=== PATIENT | female | born 1940 | race Caucasian/White ===

== ENCOUNTER → 2018-09-18 | Outpatient (CLI) | payer OTHER ==
[~2018-09-18] MED LIST: AMLODIPINE BESYL5 MG PO; AUGMENTIN 875875 M1 PO; BENICAR HCT 201 EACH PO; DICLOFENAC SODI75 M1 PO; DOXYCYCLINE 10100 MG PO; ZOCOR 20 MG TAB20 M1 PO
== END ==
LOC: RAD 12:27
DX: M16.0 Bilateral primary osteoarthritis of hip (principal); M43.26 Fusion of spine, lumbar region

== ENCOUNTER → 2018-09-26 | Outpatient (CLI) | payer OTHER ==
[~2018-09-26] VITALS: Ht 162.6 cm; Wt 84.8 kg
[~2018-09-26] MED LIST changes: +ESTRADIOL 1 MG T1 M1 PO; +LIPITOR 20 MG T20 M1 PO; +VOLTAREN GEL 1100 G1 TOP; -ZOCOR 20 MG TAB20 M1 PO
[2018-09-26 12:54] VITALS: BP 137/76
--- NOTE | 2018-09-26 13:20 | NUR ---
Pain Clinic Assessment: 1. History of Osteoarthritis: Not Applicable History of Rheumatoid Arthritis: Not Applicable 2. Height: 5 ft. 4 in. 162.6 cm. Weight: 187.0 lb. oz. 84.823 kg. Patient's BMI: 32.1 3. Vital Signs: BP: 137/76 Pulse: 102 Resp: 16 Temp: 02 Sat: 99 ECG Mon: 4. Pain Intensity: 3 5. Fall Risk: Dizziness: N Needs help standing or walking: Y Fallen in the last 3 months: N Fall risk comments: 6. Patient on Blood Thinner: None 7. History of Hypertension: Y 8. Opioid Therapy greater than 6 weeks: N Opiate Contract Signed: 9. Risk Assessment Tool Provided: 10. Functional Assessment Tool: 11. Recreational Drug Use: Never Drug Type: Tobacco Use: Never Smoker Tobacco Type: Amount or Packs/day: How Many Years: Alcohol Use: Yes Frequency: Monthly Quant: 1-2
--- NOTE | 2018-10-04 07:55 | HPC ---
[facility] [address] [place] [address] PAIN MANAGEMENT CONSULTATION Name: KRISCAN MORENOANYI Narvaez Room #: REG LYNSEY Saldaña.#: [id number] Admission: 09/26/18 Attend Phys: Len Barreto DO Discharge: Date of : 44 Report #: [id number] THIS REPORT FOR: //name// CC: FAM physician/PCP Len Ellison DATE OF SERVICE: 09/26/2018 REFERRING PHYSICIAN: Dr. Angel Ellison. CHIEF COMPLAINT: Right greater trochanteric bursa pain. HISTORY OF PRESENT ILLNESS: As you know, the patient is a 77-year-old female who has been referred to our service with right greater trochanteric bursitis pain. She is easily able to localize the pain directly over the right greater trochanteric area. Deep palpation of the area causes intensification of pain. She was seen by Dr. Ellison recently for evaluation where she was complaining of pain after a recent L3-L4 through S1 instrumentation and fusion due to a failed L4-L5 and L5-S1 instrumented fusion. The patient states that Dr. Ellison did not feel that her symptoms were related to her low back and was subsequently referred to our clinic to discuss options for treatment. The patient indicates pain today is rhythmic. She describes this pain as aching, stabbing and tender. She places current pain score 3/10, daily average of 3-4/10, worst pain has been is 10/10. The patient states pain is exacerbated with lying on the right side and walking, improves with icing and sitting in a left lateral decubitus position. She has been referred to our service to discuss treatment options for what appears to be right greater trochanter bursitis. PAST MEDICAL HISTORY: 1. Osteoarthritis. 2. Gout. 3. Hypertension. 4. Osteopenia. 5. Fibromyalgia. 6. Osteoporosis. 7. Failed lumbar spine surgery. PAST SURGICAL HISTORY: 1. Tonsillectomy. 2. Hysterectomy. 3. Left arm open reduction and internal fixation. 4. Breast augmentation. 5. Right total knee replacement. [address] [address] PAIN MANAGEMENT CONSULTATION Name: TONI PONCE Room #: REG [facility] Piper.#: [id number] Admission: 09/26/18 Attend Phys: Len Barreto DO Discharge: Date of : 42 Report #: [id number] 6. L4-L5 fusion. 7. Achilles tendon repair. 8. Right total knee arthroplasty. 9. Left total knee arthroplasty. 10. L4 through S1 TLIF. SOCIAL HISTORY: The patient denies tobacco or IV or illicit drug use. She is single. She is retired, not working, not receiving workmen's compensation nor is trying to obtain disability benefits. She is unaccompanied at today's visit. REVIEW OF SYSTEMS: Positive for weight gain, wearing corrective eyewear, chronic sinus problems with rhinitis, nocturia, insomnia, right greater trochanteric bursa pain. All other review of systems negative per 12-point review of systems other than those listed in history of present illness. PAIN SCORE: Pain impact score 25/70 indicating [id number] interference of daily activities secondary to pain. ALLERGIES: SULFA. CURRENT MEDICATIONS: Levothyroxine 50 mcg per day, gabapentin 300 mg 4 tabs t.i.d., cyclobenzaprine 5 mg p.o. at bedtime, atorvastatin 20 mg per day, estradiol 1 mg once a day, Benicar/hydrochlorothiazide 20/12.5 mg once a day, calcium carbonate 1 tablet a per day, Coenzyme Q10 300 mg once a day, cyclobenzaprine 10 mg p.r.n. and Mobic 15 mg per day. IMAGING DATA: X-ray of the right hip shows SI joint and pubic symphysis are intact. Degenerative changes of the pubic symphysis, hip joints appear symmetrical bilaterally. No acute fracture or dislocation. No bony destructive changes. PQRS: The patient has known osteoarthritic changes of the pubic symphysis and lumbar spine, no rheumatoid arthritis. She is placing pain intensity 3/10. She is a fall risk but has not had a fall in the last 3 months. She is not on blood thinners. She is treated for hypertension. She is not on chronic opioids. She has a low opioid addiction potential. PHYSICAL EXAMINATION: VITAL SIGNS: Blood pressure 137/76, pulse 102 and respiratory rate 16 and unlabored. The patient 99% on room air. Height 5 feet 4 inches tall, weight 187 pounds and BMI calculated 32.1. GENERAL: Well-developed, well-nourished and well-hydrated exogenously obese 77-year-old female appearing stated age, placing current pain score at 3/10. HEENT: Normocephalic and atraumatic. Pupils equal, round and reactive to light. Extraocular muscles are intact. Sclerae nonicteric without injection. NEUROLOGICAL: Cranial nerves 2 through 12 grossly intact. Speech is fluent. [address] [address] PAIN MANAGEMENT CONSULTATION Name: TONI PONCE Room #: REG LYNSEY Braxton#: [id number] Admission: 09/26/18 Attend Phys: Len Barreto DO Discharge: Date of : 42 Report #: [id number] LUNGS: Clear, no wheeze, rhonchi or rales. CARDIOVASCULAR: Tachycardic. No appreciable gallop or rub. ABDOMEN: Soft, obese, nontender and nondistended. EXTREMITIES: Show no clubbing, no cyanosis and no edema. MUSCULOSKELETAL: Lower extremity strength appears equal and symmetrical 5/5, intact to light touch from L1 through S2 dermatomes. Deep tendon reflexes are 2+/4, patella and Achilles. Ankle clonus negative. Babinski is negative. There is palpatory tenderness over the right greater trochanteric area. Deep palpation of the area causes intensification of pain with radiation in typical distribution. ASSESSMENT: 1. Right greater trochanteric bursitis. 2. Muscle spasms of the lumbar spine. 3. Chronic intractable pain. PLAN: 1. The patient has been referred to our service by her neurosurgeon, Dr. Angel Ellison for evaluation for pain that is not resolved with previous surgery. The patient is easily able to localize her symptoms directly over the right greater trochanteric area. Deep palpation of the area causes intensification of pain, which is consistent with greater trochanteric bursitis. The patient indicates that her pain is exacerbated with lying on that right side and walking long distances classic signs and symptoms of greater trochanteric bursitis. There are no lumbar radicular symptoms with the patient and there is no lumbar palpatory tenderness today, though she does have some spasming in the back, which is typical for recent surgeries. She has been referred to our service to discuss treatment options for this right greater trochanteric bursa pain. We discussed physical therapy, stretching exercises, core strengthening as a treatment option for the patient. This included with some hip treatments and greater trochanteric bursa treatments with ultrasound and other modalities. We discussed medication management adding a neuropathic pain medication and a nonsteroidal anti-inflammatory. We discussed a greater trochanteric bursa injections and ultimately surgical options such as a bursectomy. After reviewing risks and benefits of all proposed treatment options, the patient chose to begin with the right greater trochanteric bursa injection under fluoroscopic guidance. 2. The patient was advised risks and benefits of a right greater trochanteric bursa injection. These risks include but are not necessarily limited to bleeding, bruising, infection, worsening pain, no relief of pain, temporary or permanent muscle weakness, temporary or permanent nerve damage, possible . The patient states understood and wished to proceed. 3. The patient was provided a prescription of Voltaren gel 1% solution. She was given 2 tubes 100 grams each to apply topically to the area for pain control. She was given this prescription with no refills. If she finds this [address] [address] PAIN MANAGEMENT CONSULTATION Name: KRISCAN MORENOANYI Narvaez Room #: REG CL Irais#: [id number] Admission: 09/26/18 Attend Phys: Len Barreto DO Discharge: Date of : 42 Report #: [id number] medication effective, she can contact our clinic for refills if necessary. She will begin use of this medication, starting in 24 hours. 4. We will see the patient back in followup visit in approximately one month. At that time, review the efficacy of today's greater trochanteric bursa injection to determine if next in the series why be necessary to address any residual pain. 5. We wish to thank Dr. Ellison for the referral of patient to our clinic. We will keep you apprised of her response to treatment as we address her current greater trochanter bursitis pain on the right in any other pain generated post-surgery. Again, we wish to thank you for the opportunity to see the patient in consultation. PROCEDURE NOTE DESCRIPTION OF PROCEDURE: Right greater trochanteric bursa injection under fluoroscopic guidance. After obtaining written consent, the patient was placed in a left lateral decubitus position. The patient was lying on the unaffected side with the lower hip and knee flexed and the upper hip and knee extended. The trochanteric bursa on the affected side was identified by palpation. Using a skin marker, the target site was marked and then prepped and draped sterilely in aseptic fashion with chlorhexidine. The patient required a skin wheal of 3 mL of lidocaine 1% preservative-free to anesthetize skin and subcutaneous tissue. A 22-gauge 3-1/2 inch spinal needle was then advanced under fluoroscopic guidance until reaching the tip of the greater trochanter. Needle was then retracted approximately 1 mm and aspiration noted to be negative for heme. After aspiration noted to be negative for heme, a solution of 5 mL containing 1 mL 40 mg per mL, 40 mg total triamcinolone and 4 mL of bupivacaine 0.5% injected slowly. Needle was retracted approximately half way, flushed with 1 mL of 1% lidocaine and removed. The patient tolerated procedure well, carefully escorted to recovery room in stable condition. The patient was able to move all 4 extremities after procedure. After meeting discharge criteria, the patient discharged home. <ELECTRONICALLY SIGNED> By: Len Barreto DO 10/04/18 [id number] Len Barreto DO /nt
== END | disposition home or self-care (01) ==
LOC: PAIN 06:55
DX: M70.61 Trochanteric bursitis, right hip (principal); M62.838 Other muscle spasm; G89.29 Other chronic pain; I10 Essential (primary) hypertension; M81.0 Age-related osteoporosis without current pathological fracture; M19.90 Unspecified osteoarthritis, unspecified site; M10.9 Gout, unspecified; M79.7 Fibromyalgia; M96.1 Postlaminectomy syndrome, not elsewhere classified; Z79.899 Other long term (current) drug therapy; Z96.653 Presence of artificial knee joint, bilateral; Z90.710 Acquired absence of both cervix and uterus; Z98.890 Other specified postprocedural states

== ENCOUNTER → 2018-11-08 | Outpatient (CLI) | payer OTHER ==
[~2018-11-08] VITALS: Ht 162.6 cm; Wt 85.7 kg
--- NOTE | ~2018-11-08 | HPC ---
[facility] [address] [employer] [address] PAIN MANAGEMENT CONSULTATION Name: CAN PONCEANYI Narvaez Room #: REG LYNSEY ManzanraesEvaSolange.#: [id number] Admission: 11/08/18 ������������������ Attend Phys: Len Barreto DO Discharge: ������������������ Date of : 42 Report #: [id number] THIS REPORT FOR: //name// CC: FAM physician/PCP Len Ellison MD DATE OF SERVICE: 11/08/2018 REFERRING PHYSICIAN: Dr. Angel Ellison. CHIEF COMPLAINT: Right sacroiliac joint pain. HISTORY OF PRESENT ILLNESS: As you know, the patient is a 77-year-old female who returns today in followup visit indicating no improvement with the greater trochanteric bursa requested by her neurosurgeon. She continues to experience buttock and posterolateral thigh pain for which she has been advised to trial a right SI joint injection. We discussed this at our last visit. She returns stating pain today of a level of 9/10. She has been advised if the SI joint injection is not effective that they are going to have the patient undergo MRI of the lumbar spine for further evaluation. She returns today to undergo right SI joint injection in hopes of improving the rhythmic aching and stabbing pain she is experiencing in the low back, buttock area, which is exacerbated with walking and lying on her right side. ALLERGIES: AUGMENTIN, SULFA AND AMOXICILLIN. CURRENT MEDICATIONS: Benicar 20/12.5 mg once a day, amlodipine 5 mg per day, atorvastatin 20 mg per day, Estrace 1 mg once a day, diclofenac gel apply topically up to 3 times a day 1% solution. IMAGING: There is no new imaging available. PQRS: The patient has osteoarthritic changes of the pubic symphysis, lumbar spine, bilateral hips. No rheumatoid arthritis. She is placing pain intensity today at 9/10. She is not a fall risk, has not had a fall in the last 3 months. She is not on blood thinners. She is treated for hypertension and dyslipidemia. She is not on chronic opioids. She has a low opioid addiction potential. She is placing pain impact score at 60/70, severe near complete interference of daily activities secondary to pain. PHYSICAL EXAMINATION: VITAL SIGNS: Blood pressure 178/94, pulse is 85, respiratory rate 16 and unlabored. The patient is 97% on room air. Height 5 feet 4 inches tall, weight 189 pounds, BMI calculated at 32.4. GENERAL: Well developed, well nourished, well [place] [address] PAIN MANAGEMENT CONSULTATION Name: TONI PONCE Room #: REG [facility]#: [id number] Admission: 11/08/18 ������������������ Attend Phys: Len Barreto DO Discharge: ������������������ Date of : 42 Report #: [id number] 77-year-old female. She appears stated age, pain is rated around 9/10. HEENT: Normocephalic, atraumatic. Pupils equal, round, reactive to light. EXTREMITIES: Show no clubbing, no cyanosis and no edema. MUSCULOSKELETAL: The patient has some tenderness to palpation over the right sacroiliac joint when compared to left. Deep palpation of the area causes intensification of pain. Seated straight leg raising negative. Supine straight leg raising is negative. Marguerite's test is positive for SI joint dysfunction. No intrinsic hip pathology noted during this exam. Deep palpation over the sacrum itself with sacral rock exacerbates symptoms. ASSESSMENT: 1. Right sacroiliac joint pain. 2. Right sacroiliac joint dysfunction. 3. Intractable pain. PLAN: 1. The patient returns today in followup visit having noted no improvement with the greater trochanteric bursa requested by Dr. Ellison in our last visit. She apparently returned to see Dr. Ellison who has referred the patient back once again to trial a right SI joint injection under fluoroscopic guidance to determine if her symptoms may be from this area. We have discussed with the patient the risks and benefits of this procedure. These risks include, but are not necessarily limited to, bleeding, bruising, infection, worsening pain, no relief of pain, also risk of temporary or permanent muscle weakness, temporary or permanent nerve damage, possible paralysis, joint destruction and . The patient states she understood and wished to proceed. 2. No medication changes made at today's visit. The patient will continue current medical therapy as previously prescribed. 3. The patient to return to our clinic on an as needed basis for possible next in the series of sacroiliac joint injections under fluoroscopic guidance. PROCEDURE NOTE PROCEDURE: Right SI joint injection under fluoroscopic guidance. This is the first procedure of the first series that the patient is undergoing. After obtaining written consent, the patient was taken back to the fluoroscopy suite and placed in a prone position with a pillow under the pelvis to decrease the lumbar lordosis. The skin of the gluteal-sacral area overlying the right sacroiliac joint was prepped and draped in an aseptic fashion. A medial to lateral oblique projection allowed separation of the anterior and posterior branches of the joint space. The skin and subcutaneous tissue overlying the target site of injection was anesthetized using 3 mL of 1% lidocaine. A 22 gauge 3-1/2 inch needle with a bent tip was directed into the [address] [address] PAIN MANAGEMENT CONSULTATION Name: TONI PONCE Room #: REG [facility]#: [id number] Admission: 11/08/18 ������������������ Attend Phys: Len Barreto DO Discharge: ������������������ Date of : 42 Report #: [id number] inferior aspect of the sacroiliac joint using a posterior approach. A giving way at the needle hub was noted once the dorsal sacroiliac and interosseous ligaments were engaged. After negative aspiration for heme, a total of 0.5 mL of Omnipaque was injected, outlining the coin-shaped inferior recess of the joint. Provocation responses consisting of intense buttock pain were negative. After negative aspiration for heme, 3 mL of a solution containing 1 mL 40 mg per mL, 40 mg total triamcinolone and 2 mL of bupivacaine 0.5% was slowly injected. The needle was then retracted approximately long term and the needle track was flushed with 1 mL of lidocaine 1%. Needle was then removed. A sterile bandage was placed over the injection site. There were no new sensory deficits present in the lower extremities. The heart rate, pulse oximetry and blood pressure were continuously monitored after the procedure. There were no apparent complications. The patient tolerated the procedure well and was carefully escorted to the recovery room in stable condition. The VAS was 9/10 before the procedure and 4/10 ten minutes after the procedure. After meeting discharge criteria, the patient was discharged home. ��������������������������������������������� ���������������������������������������� By: ��������������������������������������������� [id number] Len Barreto DO /crow
[2018-11-08 10:06] VITALS: BP 178/94
--- NOTE | 2018-11-08 10:15 | NUR ---
Pain Clinic Assessment: 1. History of Osteoarthritis: Not Applicable History of Rheumatoid Arthritis: Not Applicable 2. Height: 5 ft. 4 in. 162.6 cm. Weight: 189.0 lb. oz. 85.730 kg. Patient's BMI: 32.4 3. Vital Signs: BP: 178/94 Pulse: 85 Resp: 16 Temp: 02 Sat: 97 ECG Mon: 4. Pain Intensity: 9 5. Fall Risk: Dizziness: N Needs help standing or walking: N Fallen in the last 3 months: N Fall risk comments: 6. Patient on Blood Thinner: None 7. History of Hypertension: Y 8. Opioid Therapy greater than 6 weeks: N Opiate Contract Signed: 9. Risk Assessment Tool Provided: LOW 10. Functional Assessment Tool: 11. Recreational Drug Use: Never Drug Type: Tobacco Use: Never Smoker Tobacco Type: Amount or Packs/day: How Many Years: Alcohol Use: Yes Frequency: Special Occasions Quant:
== END | disposition home or self-care (01) ==
LOC: PAIN 07:06
DX: M53.3 Sacrococcygeal disorders, not elsewhere classified (principal); G89.29 Other chronic pain; I10 Essential (primary) hypertension; E78.5 Hyperlipidemia, unspecified; M19.90 Unspecified osteoarthritis, unspecified site; Z88.0 Allergy status to penicillin; Z88.8 Allergy status to other drugs, medicaments and biological substances; Z79.899 Other long term (current) drug therapy; Z88.2 Allergy status to sulfonamides; Z98.890 Other specified postprocedural states

== ENCOUNTER → 2018-12-06 | Outpatient (CLI) | payer OTHER ==
[~2018-12-06] VITALS: Ht 162.6 cm; Wt 83.0 kg
[~2018-12-06] MED LIST changes: +ALLERGY RELIEF10 MG PO; +BENICAR20 MG PO; +FLONASE 0.05%50 MCG NASAL; +SPIRONOLACTONE25 M1 PO
--- NOTE | ~2018-12-06 | HPC ---
[facility] [place] [address] PAIN MANAGEMENT CONSULTATION Name: TONI PONCE Solange Room #: REG LYNSEY Saldaña.#: [id number] Admission: 12/06/18 ������������������ Attend Phys: Len Barreto DO Discharge: ������������������ Date of : 44 Report #: [id number] THIS REPORT FOR: //name// CC: Dr. Angel Ellison FAM physician/PCP Len Barreto DATE OF SERVICE: 12/06/2018 REFERRING PHYSICIAN: Dr. Angel Ellison. CHIEF COMPLAINT: Right sacroiliac joint pain. HISTORY OF PRESENT ILLNESS: As you know, the patient is a 78-year-old female who returns today in followup visit to undergo next in the series of right SI joint injections under fluoroscopic guidance. She underwent the first in the series on 11/08/2018 with improvement in symptoms greater than 40%. She returns today in followup visit stating pain score 5/10. States the pain is aching and stabbing in sensation, exacerbated with lying on the right side, walking, ice, sitting, repositioning and right SI joint injections are the only improvement that she receives. She returns today in followup visit to undergo next in the series of right SI joint injections per her neurosurgeon's request. ALLERGIES: AMOXICILLIN and SULFA. CURRENT MEDICATIONS: Amlodipine, atorvastatin, estradiol, diclofenac, spironolactone, olmesartan, fluticasone, cetirizine. SOCIAL HISTORY: The patient denies tobacco, alcohol, IV or illicit drug use. She is unaccompanied today. IMAGING: No new imaging available. PQRS: The patient has arthritic changes of the pubic symphysis, lumbar spine and bilateral hips. No rheumatoid arthritis. She is placing current pain score at 5/10. She is not a fall risk, has not had a fall in the last 3 months. She is not on blood thinners. She is treated for hypertension. She is not on chronic opioids. She has a low opioid addiction potential. She is placing current pain score at 57/70, indicating severe interference of daily activities secondary to pain. PHYSICAL EXAMINATION: VITAL SIGNS: Blood pressure 146/95, pulse 102, respiratory rate 18 and unlabored. The patient is 95% on room air. Height 5 feet 4 inches tall, weight 183 pounds, BMI calculated 31.4. GENERAL: Well-developed, well-nourished, well-hydrated 78-year-old female, [place] [address] PAIN MANAGEMENT CONSULTATION Name: TONI PONCE Room #: REG CLI [facility]#: [id number] Admission: 12/06/18 ������������������ Attend Phys: Len Barreto DO Discharge: ������������������ Date of : 42 Report #: [id number] appearing stated age, placing current pain score 5/10. HEENT: Normocephalic, atraumatic. Pupils equal, round, reactive to light. EXTREMITIES: Show no clubbing, no cyanosis, and no edema. MUSCULOSKELETAL: Tenderness to palpation is noted over the right sacroiliac joint when compared to left. Deep palpation of the area causes intensification of pain. Seated straight leg raising is negative. Supine straight leg raising is negative. Marguerite's test positive for SI joint dysfunction right, negative left. No intrinsic hip pathology again noted. Strength in the lower extremities equal and symmetrical 5/5. ASSESSMENT: 1. Right sacroiliac joint pain. 2. Right sacroiliac joint dysfunction. 3. Chronic intractable pain. PLAN: 1. The patient returns today in followup visit to undergo second in the series of right SI joint injections. She received approximately 40% improvement overall with the previous SI joint injection. She is hopeful to see similar improvement today. She has been advised of the risks and benefits, states she understood and wished to proceed. 2. No medication changes made at today's visit. The patient will continue current medical therapy as previously prescribed. 3. We will see the patient back in followup visit on an as needed basis for possible third in the series of SI joint injections. PROCEDURE NOTE DESCRIPTION OF PROCEDURE: Right sacroiliac joint injection under fluoroscopic guidance. This is the second procedure of the first series that the patient is undergoing. After obtaining written consent, the patient was taken back to the fluoroscopy suite and placed in a prone position with a pillow under the pelvis to decrease the lumbar lordosis. The skin of the gluteal-sacral area overlying the right sacroiliac joint was prepped and draped in an aseptic fashion. A medial to lateral oblique projection allowed separation of the anterior and posterior branches of the joint space. The skin and subcutaneous tissue overlying the target site of injection was anesthetized using 3 mL of 1% lidocaine. A 22-gauge 3-1/2 needle with a bent tip was directed into the inferior aspect of the sacroiliac joint using a posterior approach. A "giving way" at the needle hub was noted once the dorsal sacroiliac and interosseous ligaments were engaged. After negative aspiration for heme, a total of 0.4 mL of Omnipaque was injected, outlining the coin-shaped inferior recess of the [address] [address] PAIN MANAGEMENT CONSULTATION Name: TONI PONCE Room #: REG LYNSEY Braxton#: [id number] Admission: 12/06/18 ������������������ Attend Phys: Len Barreto DO Discharge: ������������������ Date of : 42 Report #: [id number] joint. Provocation responses consisting of intense buttock pain were negative. After negative aspiration for heme, 3 mL of a solution containing 1 mL of 40 mg per mL, 40 mg total triamcinolone and 2 mL bupivacaine 0.5% was slowly injected. The needle was then retracted approximately senior living and the needle track was flushed with 1 mL of 1% lidocaine. Needle was then removed. A sterile bandage was placed over the injection site. There were no new sensory deficits present in the lower extremities. The heart rate, pulse oximetry and blood pressure were continuously monitored after the procedure. There were no apparent complications. The patient tolerated the procedure well and was carefully escorted to the recovery room in stable condition. The VAS was 5/10 before the procedure and 4/10 ten minutes after the procedure. After meeting discharge criteria, the patient was discharged home. ��������������������������������������������� ���������������������������������������� By: ��������������������������������������������� 0801 [id number] Len Barreto DO /nt
[2018-12-06 09:45] VITALS: BP 146/95
--- NOTE | 2018-12-06 09:55 | NUR ---
Pain Clinic Assessment: 1. History of Osteoarthritis: Not Applicable History of Rheumatoid Arthritis: Not Applicable 2. Height: 5 ft. 4 in. 162.6 cm. Weight: 183.0 lb. oz. 83.008 kg. Patient's BMI: 31.4 3. Vital Signs: BP: 146/95 Pulse: 102 Resp: 18 Temp: 02 Sat: 95 ECG Mon: 4. Pain Intensity: 5 5. Fall Risk: Dizziness: N Needs help standing or walking: N Fallen in the last 3 months: N Fall risk comments: 6. Patient on Blood Thinner: None 7. History of Hypertension: Y 8. Opioid Therapy greater than 6 weeks: N Opiate Contract Signed: 9. Risk Assessment Tool Provided: LOW 10. Functional Assessment Tool: 57/ 11. Recreational Drug Use: Never Drug Type: Tobacco Use: Never Smoker Tobacco Type: Amount or Packs/day: How Many Years: Alcohol Use: Yes Frequency: Quant:
== END | disposition home or self-care (01) ==
LOC: PAIN 06:56
DX: M53.3 Sacrococcygeal disorders, not elsewhere classified (principal); G89.29 Other chronic pain; I10 Essential (primary) hypertension; M19.90 Unspecified osteoarthritis, unspecified site; Z98.890 Other specified postprocedural states; Z88.8 Allergy status to other drugs, medicaments and biological substances; Z88.2 Allergy status to sulfonamides; Z79.899 Other long term (current) drug therapy

== ENCOUNTER → 2019-03-13 | Outpatient (CLI) | payer OTHER ==
[~2019-03-13] VITALS: Ht 162.6 cm; Wt 84.8 kg
[~2019-03-13] MED LIST changes: +CELEBREX 200 M200 MG PO; +MUCINEX1200 MG PO; +NEURONTIN 300300 M1 PO; +TRAZODONE HCL100 MG PO; +TRAZODONE HCL50 MG PO
--- NOTE | ~2019-03-13 | HPC ---
[facility] [place] [address] PAIN MANAGEMENT CONSULTATION Name: TONI PONCE Solange Room #: REG LYNSEY ManzanaresEvaSolange.#: [id number] Admission: 03/13/19 ������������������ Attend Phys: Len Barreto DO Discharge: ������������������ Date of : 42 Report #: [id number] THIS REPORT FOR: //name// CC: MERARI Ellison MD DATE OF SERVICE: 03/13/2019 CHIEF COMPLAINT: Low back pain, right lower extremity pain with paresthesias. HISTORY OF PRESENT ILLNESS: As you know, the patient is a 78-year-old female referred to our service by Dr. Angel Ellison to trial right sacroiliac joint injection under fluoroscopic guidance. The patient underwent that procedure per his request on 11/08/2018. She was then subsequently sent for SI joint manipulation in hopes of improving overall pain. She returns today in followup visit stating that her SI joint pain has changed and is now radiating down her leg, to her foot. This is a classic radicular distribution. She is placing pain intensity of 7/10. She returns today in followup visit to discuss treatment options. She has not yet to return to see Dr. Ellison, the referring physician in regards to the development of lumbar radicular symptoms involving the right lower extremity. She denies injury or trauma. ALLERGIES: AUGMENTIN, SULFA, and AMOXICILLIN. CURRENT MEDICATIONS: Benicar, amlodipine, atorvastatin, esterase, and diclofenac gel. SOCIAL HISTORY: The patient denies tobacco, alcohol, IV, or illicit drug use. IMAGING: There is no new imaging available. PQRS: The patient has osteoarthritic changes of the pubic symphysis lumbar spine, bilateral hips, no rheumatoid arthritis. She is placing pain score 4-7/10. She is not a fall risk. Has not had fallen in the last 3 months. She is on a blood thinner. She is treated for hypertension. She is not on opiate. She has a low opiate addiction potential. She is placing pain impact score 57/70, severe interference of daily activities secondary to pain. PHYSICAL EXAMINATION: VITAL SIGNS: Blood pressure 111/61, pulse 95, respiratory rate 20 and unlabored. The patient is 97% on room air. Height 5 feet 4 inches tall, weighs 187 pounds, BMI calculated 32.1. GENERAL: Well-developed, well-nourished, well-hydrated, obese 78-year-old female appearing stated age, placing pain score anywhere from 4-7/10. HEENT: Normocephalic, atraumatic. Pupils equal, round, reactive to light. [facility] [address] [place] [address] PAIN MANAGEMENT CONSULTATION Name: TONI PONCE Room #: REG LYNSEY Braxton#: [id number] Admission: 03/13/19 ������������������ Attend Phys: Len Barreto DO Discharge: ������������������ Date of : 42 Report #: [id number] EXTREMITIES: Show no clubbing, no cyanosis, no edema. MUSCULOSKELETAL: Lower extremity strength is symmetrical, though there is giveaway strength noted on the right when compared to left in classic radicular pain pattern. Seated straight leg raising positive right. Supine straight leg raising positive right. Marguerite's test is positive for some SI joint dysfunction. ASSESSMENT: 1. Lumbar radiculopathy. 2. Lumbosacral spondylosis with radiculopathy. 3. Right sacroiliac joint pain. 4. Chronic intractable pain. PLAN: 1. The patient returns today in followup visit having undergone right SI joint injection per the request of Dr. Angel Ellison at our last visit. Unfortunately, this did not provide long-term benefit. We also sent the patient for SI joint manipulation in hopes of improving pelvic symptoms. This again did not provide much improvement. She returns today with pain radiating from the right back all the way down the right leg to the foot in classic lumbar radicular fashion. We discussed treatment options today. Given the extensive surgery, she has undergone epidural injections may be difficult. We could provide a caudal epidural injection, though we would recommend at least initially trying conservative medical management. She is amenable to make these adjustments. The patient will restart gabapentin as she was suboptimally dosed originally, she was only taking 300 mg 3 times a day, which is only a starting dose. We have discussed increasing gabapentin 300 mg every 3 days, reaching 900 mg t.i.d. She was given a titration in written form on how to escalate her dose. She will begin this escalation immediately. She was given a prescription of gabapentin 300 mg tablets to follow this titration as directed. The patient was advised anytime during the titration, she notes improvement in symptoms, stabilize at that dose, do not increase any further. No side effects and no improvement in symptoms, follow the titration as directed. She was given #270, 300 mg gabapentin tablets to begin this treatment. 2. The patient has requested a prescription of celecoxib 200 mg dose 1 tab p.o. b.i.d. for "inflammation." She is concentrating on her concerns of inflammation. She has been on anti-inflammatories in the past. This did not seem to improve her symptoms, though I do feel it could benefit the patient to make this adjustment. We have provided celecoxib 200 mg dose 1 tab p.o. b.i.d. to be taken with meals. She will watch for dyspepsia, worsening blood pressure, lower extremity edema. She must discontinue all other anti-inflammatories in favor of the celecoxib. 4. The patient has requested a prescription of trazodone. She states this helps with sleep. I have given her 100 mg tab 1 tab p.o. at bedtime, #30, no refills. The patient will need to receive these medications from her PCP for here forward. This is not a pain management medication and is not under our purview to continue to write. We are willing to provide the medication on a [facility] [address] [place] [address] PAIN MANAGEMENT CONSULTATION Name: TONI PONCE Room #: REG LYNSEY Braxton#: [id number] Admission: 03/13/19 ������������������ Attend Phys: Len Barreto DO Discharge: ������������������ Date of : 44 Report #: [id number] short-term as her lack of sleep is affecting her chronic pain, so ultimately she needs to undergo sleep studies and determine if this is necessary to continue. 5. We will see the patient back in followup visit after she has increased her medications. She is to follow up with Dr. Ellison in regards to this new onset of radicular symptoms. We will see her back in 1 month. ��������������������������������������������� ���������������������������������������� By: ��������������������������������������������� 08 0836 Len Barreto DO /nt
[2019-03-13 10:25] VITALS: BP 111/61
--- NOTE | 2019-03-13 11:00 | NUR ---
Pain Clinic Assessment: 1. History of Osteoarthritis: Not Applicable History of Rheumatoid Arthritis: Not Applicable 2. Height: 5 ft. 4 in. 162.6 cm. Weight: 187.0 lb. oz. 84.823 kg. Patient's BMI: 32.1 3. Vital Signs: BP: 111/61 Pulse: 95 Resp: 20 Temp: 02 Sat: 97 ECG Mon: 4. Pain Intensity: 0 NOW 4-7 ACTIVITY 5. Fall Risk: Dizziness: N Needs help standing or walking: N Fallen in the last 3 months: N Fall risk comments: 6. Patient on Blood Thinner: None 7. History of Hypertension: Y 8. Opioid Therapy greater than 6 weeks: N Opiate Contract Signed: 9. Risk Assessment Tool Provided: LOW 10. Functional Assessment Tool: 57/70 11. Recreational Drug Use: Never Drug Type: Tobacco Use: Never Smoker Tobacco Type: Amount or Packs/day: How Many Years: Alcohol Use: Yes Frequency: Special Occasions Quant: 1-2
== END ==
LOC: PAIN 06:58
DX: M47.27 Other spondylosis with radiculopathy, lumbosacral region (principal); M53.3 Sacrococcygeal disorders, not elsewhere classified; G89.4 Chronic pain syndrome; Z79.899 Other long term (current) drug therapy; Z88.8 Allergy status to other drugs, medicaments and biological substances; Z88.2 Allergy status to sulfonamides

== ENCOUNTER → 2019-04-04 | Outpatient (CLI) | payer OTHER ==
[~2019-04-04] VITALS: Ht 162.6 cm; Wt 86.6 kg
[2019-04-04 10:50] VITALS: BP 160/77
--- NOTE | 2019-04-04 11:06 | NUR ---
Pain Clinic Assessment: 1. History of Osteoarthritis: Not Applicable History of Rheumatoid Arthritis: Not Applicable 2. Height: 5 ft. 4 in. 162.6 cm. Weight: 191.0 lb. oz. 86.637 kg. Patient's BMI: 32.8 3. Vital Signs: BP: 160/77 Pulse: 76 Resp: 20 Temp: 02 Sat: 100 ECG Mon: 4. Pain Intensity: 8 5. Fall Risk: Dizziness: N Needs help standing or walking: Y Fallen in the last 3 months: N Fall risk comments: 6. Patient on Blood Thinner: None 7. History of Hypertension: Y 8. Opioid Therapy greater than 6 weeks: N Opiate Contract Signed: 9. Risk Assessment Tool Provided: LOW 10. Functional Assessment Tool: 57/ 11. Recreational Drug Use: Never Drug Type: Tobacco Use: Never Smoker Tobacco Type: Amount or Packs/day: How Many Years: Alcohol Use: Yes Frequency: Monthly Quant: 1
--- NOTE | 2019-04-10 09:09 | HPC ---
[facility] [place] [address] PAIN MANAGEMENT CONSULTATION Name: CAN PONCEANYI Narvaez Room #: REG CLJosé Luis Saldaña.#: [id number] Admission: 04/04/19 Attend Phys: Len Barreto DO Discharge: Date of : 44 Report #: [id number] THIS REPORT FOR: //name// CC: MERARI Barreto DATE OF SERVICE: 04/04/2019 CHIEF COMPLAINT: Right greater trochanteric bursitis. HISTORY OF PRESENT ILLNESS: As you know, the patient is a 78-year-old female who returns today in followup visit with increasing right greater trochanteric bursitis pain. The patient easily localizes the pain source to the greater trochanteric bursa. She has undergone greater trochanteric bursa injections in the past per the request of Dr. Ellison. She returns today in followup visit requesting to undergo this bursa injection today. She indicates pain is exacerbated with walking, standing or doing any type of activities. She is placing pain score at 8/10. She denies injury or trauma that may have led to symptom occurrence. ALLERGIES: AUGMENTIN, SULFA, AMOXICILLIN. CURRENT MEDICATIONS: Benicar, amlodipine, atorvastatin, Estrace and diclofenac gel. SOCIAL HISTORY: The patient denies tobacco, alcohol, IV or illicit drug use. IMAGING: There is no new imaging available. PQRS: The patient has arthritic changes of the pubic symphysis, the sacroiliac joints of the lumbar spine, bilateral hips. No rheumatoid arthritis. She is placing pain today at 8/10. She is at fall risk, but has not had a fall in last 3 months. She is using a cane for ambulation and balance. She is not on blood thinners. She is treated for hypertension. She is not on chronic opioids, but our opioid assessment tool indicates low opioid addiction potential. Pain impact score 57/70 indicating severe interference of daily activities secondary to pain. PHYSICAL EXAMINATION: VITAL SIGNS: Blood pressure 160/77, pulse 76, respiratory rate 20 and unlabored. The patient is 100% on room air. Height 5 feet 4 inches tall, weight 191 pounds, BMI calculated at 32.8. GENERAL: Well-developed, well-nourished, well-hydrated, morbidly obese 78-year-old female appearing stated age, pain is rated today at 8/10. HEENT: Normocephalic, atraumatic. Pupils equal, round, reactive to light. Speech fluent. The patient deemed a fair historian. [address] [address] PAIN MANAGEMENT CONSULTATION Name: TONI PONCE Room #: REG [facility]#: [id number] Admission: 04/04/19 Attend Phys: Len Barreto DO Discharge: Date of : 42 Report #: [id number] EXTREMITIES: Show no clubbing, no cyanosis, and no edema. MUSCULOSKELETAL: The patient has had discrete tenderness to palpation directly over the right greater trochanteric bursa. Deep palpation in area causes intensification of pain with radiation of symptoms along the posterolateral thigh, but not below the knee, classic for greater trochanteric bursitis. Seated straight leg raising negative. Supine straight leg raising is negative. Marguerite test is positive for increased pain over the bursa. No noted intrinsic hip pain generation. SI joint is tender to palpation. ASSESSMENT: 1. Right greater trochanteric bursitis. 2. Right sacroiliac joint dysfunction. 3. Chronic intractable pain. PLAN: 1. The patient returns today in followup visit with recurrent right greater trochanteric bursitis. The patient denies injury or trauma that may have led to symptom occurrence. She states pain located directly over the greater trochanter on the right. Deep palpation of the area causes intensification of pain, classic for greater trochanteric bursitis. She also has some SI joint dysfunction with palpatory tenderness over the right SI joint. The patient apparently sought treatment through [facility] for manipulation. She underwent a couple of sessions, but she stated her pain intensified. She may ultimately need to look towards fusion of the SI joint. We will defer to the Surgery team to discuss that further. I believe this sacroiliac joint dysfunction along with the changes noted in the lumbar spine after a fusion surgery have caused changes in the patient's gait and style of stance, which is displacing the greater trochanteric bursa under much more strain causing the bursitis to be occurrence. The patient has undergone gait training, but apparently this has not improved her symptoms to any great degree. Options for treatment are as follows. 1. The patient can consider physical therapy, stretching exercise and further great training in hopes of improving pain in a more conservative fashion. She can follow up with [facility] for continuation of manipulative therapy and treatment for SI joint dysfunction. She could consider injections on a p.r.n. basis, though if the underlying problem is not corrected, she will have recurrence of symptoms continually. We discussed greater trochanteric bursa injections, also fusion of the SI joint as well as a right greater trochanteric bursectomy. These are all more aggressive treatment options, but are ways to treat her current symptoms. After reviewing risks and benefits of all proposed treatment options, the patient chose to undergo right greater trochanteric bursa injection under fluoroscopic guidance. 2. The patient was advised of risks and benefits of the greater trochanteric bursa injection. These risks include but are not necessarily limited to bleeding, bruising, infection, worsening of pain, no relief of pain, and also risk of temporary or permanent muscle weakness, possible nerve damage, allergic reaction to medication, and . The patient states understood and wished to [facility] [address] [place] [address] PAIN MANAGEMENT CONSULTATION Name: TONI PONCE Room #: REG José Luis Saldaña.#: [id number] Admission: 04/04/19 Attend Phys: Len Barreto DO Discharge: Date of : 44 Report #: [id number] proceed. 3. No medication changes made at today's visit. The patient will continue current medical therapy as previously prescribed. 4. We will see the patient back in followup visit on an as needed basis for further interventional treatments. She will be following up with her neurosurgeon if symptoms do not improve, did discuss the possibility of fusion of the SI joint and a possible right greater trochanteric bursectomy. PROCEDURE NOTE DESCRIPTION OF PROCEDURE: Right greater trochanteric bursa injection under fluoroscopic guidance. After obtaining written consent, the patient was placed in a left lateral decubitus position. The patient was lying on the unaffected side with the lower hip and knee flexed and the upper hip and knee extended. The trochanteric bursa on the right side was identified by palpation. The skin overlying the target site of injection was then prepped and draped in aseptic fashion using chlorhexidine. AP imaging was obtained of the greater trochanter on the right. The skin and subcutaneous tissue overlying the target site of injection was anesthetized with 2 mL of 1% lidocaine using a 27-gauge, 1-1/4 inch needle. A 22-gauge 3-1/2 inch spinal needle with bent tip was then inserted under fluoroscopic guidance until the tip reached the greater trochanter on the right side. Needle was then retracted approximately 1 mm and after negative aspiration for heme, 4 mL of a solution containing 1 mL 40 mg per mL, 40 mg total triamcinolone and 3 mL bupivacaine 0.5% injected slowly. Needle was then retracted approximately half way, flushed with bupivacaine 0.5% 1 mL and then removed. Sterile bandage was placed over injection site. There were no new motor deficits present in lower extremity following procedure. The patient tolerated the procedure well, carefully escorted to recovery room in stable condition. No apparent complications. After meeting our discharge criteria, the patient discharged home. <ELECTRONICALLY SIGNED> By: Len Barreto DO 04/10/19 [id number] Len Barreto DO /nt
== END | disposition home or self-care (01) ==
LOC: PAIN 06:58
DX: M70.61 Trochanteric bursitis, right hip (principal); M53.3 Sacrococcygeal disorders, not elsewhere classified; G89.29 Other chronic pain; I10 Essential (primary) hypertension; E66.01 Morbid (severe) obesity due to excess calories; Z88.1 Allergy status to other antibiotic agents; Z88.2 Allergy status to sulfonamides; Z79.899 Other long term (current) drug therapy; Z68.32 Body mass index [BMI] 32.0-32.9, adult

== ENCOUNTER → 2019-05-22 | Outpatient (CLI) | payer OTHER ==
[~2019-05-22] VITALS: Ht 162.6 cm; Wt 86.3 kg
[~2019-05-22] MED LIST changes: +BACLOFEN 10MG T10 MG PO; +HYDROCODON-ACE1 EAC7 PO; +METHOCARBAMOL500 M2 PO
[2019-05-22 08:26] VITALS: BP 139/77
--- NOTE | 2019-05-22 08:33 | NUR ---
Pain Clinic Assessment: 1. History of Osteoarthritis: Not Applicable History of Rheumatoid Arthritis: Not Applicable 2. Height: 5 ft. 4 in. 162.6 cm. Weight: 190.2 lb. oz. 86.274 kg. Patient's BMI: 32.6 3. Vital Signs: BP: 139/77 Pulse: 99 Resp: 20 Temp: 02 Sat: 98 ECG Mon: 4. Pain Intensity: 5 5. Fall Risk: Dizziness: N Needs help standing or walking: Y Fallen in the last 3 months: N Fall risk comments: 6. Patient on Blood Thinner: None 7. History of Hypertension: Y 8. Opioid Therapy greater than 6 weeks: N Opiate Contract Signed: 9. Risk Assessment Tool Provided: LOW 10. Functional Assessment Tool: 57/ 11. Recreational Drug Use: Never Drug Type: Tobacco Use: Never Smoker Tobacco Type: Amount or Packs/day: How Many Years: Alcohol Use: Yes Frequency: Quant:
--- NOTE | 2019-06-05 08:01 | HPC ---
[facility] [place] [address] PAIN MANAGEMENT CONSULTATION Name: CAN PONCEANYI Narvaez Room #: REG LYNSEY Saldaña.#: [id number] Admission: 05/22/19 Attend Phys: Len Barreto DO Discharge: Date of : 42 Report #: [id number] THIS REPORT FOR: //name// CC: MERARI [facility]ALS[facility] DATE OF SERVICE: 05/22/2019 CHIEF COMPLAINT: Right buttock pain. HISTORY OF PRESENT ILLNESS: As you know, patient is a 78-year-old female who was originally referred to our service to address right SI joint injection in hopes of improving suspected right SI joint pain. The patient underwent the injection without improvement in symptoms. She returned where we discussed other potential treatment options. The patient is placing pain score 5/10. Reported no significant pain improvement with the SI joint injection, returning today to discuss other treatment options. ALLERGIES: AUGMENTIN, SULFA, AMOXICILLIN. CURRENT MEDICATIONS: Benicar, amlodipine, atorvastatin, Estrace and diclofenac gel. SOCIAL HISTORY: The patient denies tobacco, alcohol, IV or illicit drug use. IMAGING: There is no imaging available. PQRS: The patient has known arthritic changes of the pubic symphysis, lumbar spine, bilateral hips. No rheumatoid arthritis. She is placing pain score today 5/10, not a fall risk, has not had a fall in the last 3 months. She is not on blood thinners. She is treated for hypertension. She is not on opioid medication. She has a low opioid addiction potential. She is placing pain impact score at 57/70 indicating severe interference of daily activities secondary to pain. PHYSICAL EXAMINATION: VITAL SIGNS: Blood pressure 139/77, pulse 99, respiratory rate 20 and unlabored. The patient is 98% on room air. Height 5 feet 10 inches tall, weight 190 pounds, BMI calculated 32.6. GENERAL: Well-developed, well-nourished, well-hydrated exogenously obese 78-year-old female appearing stated age, pain is rated today 5/10. HEENT: Normocephalic, atraumatic. Pupils equal, round, reactive to light. EXTREMITIES: Show no clubbing, no cyanosis, and no edema. MUSCULOSKELETAL: There is severe palpatory tenderness over the right buttock within the right buttock area. Internal and external rotation of the right hip [address] [address] PAIN MANAGEMENT CONSULTATION Name: TONI PONCE [facility] [id number] Admission: 05/22/19 Attend Phys: Len Barreto DO Discharge: Date of : 42 Report #: [id number] causes intensification of pain. There does not appear to be any intrinsic hip pathology with movement. Pain is located over what appears to be the piriformis area. ASSESSMENT: 1. Piriformis syndrome. 2. Right sacroiliac joint pain. 3. Chronic intractable pain. PLAN: 1. The patient returns today in followup visit having undergone a right SI joint injection per the request of her neurosurgeon. Unfortunately, she received no benefit in pain. It does appear based on the physical exam today that her symptoms more related to piriformis syndrome. We recommend the patient to undergo physical therapy to address piriformis syndrome. This is not unusual to be seen in a patient who has undergone extensive lumbar spine surgery with changes in her gait and stance. This can cause piriformis syndrome to be exacerbated. We recommend the physical therapy initially. If this is not effective, we could discuss a piriformis injection followed by a more aggressive physical therapy in hopes of improving overall symptoms. The patient is amenable to begin the physical therapy on the piriformis with plans to return next week to undergo a piriformis muscle injection prior to aggressive physical therapy to be performed next Tuesday. 2. The patient was provided a prescription for physical therapy to begin immediately for right piriformis syndrome. The patient will begin this process starting tomorrow as she has received authorization to do so. She will continue the physical therapy 3 times a week for the next 6 weeks with plans to undergo a piriformis injection next Tuesday prior to her physical therapy, so that a more aggressive treatment can be utilized if necessary. We have made the patient a tentative appointment. If this is not necessary, she can cancel that appointment. 3. No medication changes made at today's visit. The patient to continue current medical therapy. 4. We will keep you apprised of response to treatment as we address what appears to be right piriformis syndrome. We will be returning her care once we are unable to elucidate the cause of her symptoms and begin to see improvement in symptoms. Again, we wish to thank you for the opportunity to see the patient in consultation. <ELECTRONICALLY SIGNED> By: Len Barreto DO 06/05/19 0801 1644 [id number] Len Barreto DO /nt
== END ==
LOC: PAIN 06:47
DX: G89.4 Chronic pain syndrome (principal); G57.00 Lesion of sciatic nerve, unspecified lower limb; M53.3 Sacrococcygeal disorders, not elsewhere classified; Z88.8 Allergy status to other drugs, medicaments and biological substances; Z88.2 Allergy status to sulfonamides; Z79.899 Other long term (current) drug therapy

== ENCOUNTER → 2019-05-29 | Outpatient (CLI) | payer OTHER ==
[~2019-05-29] VITALS: Ht 165.1 cm; Wt 86.4 kg
[2019-05-29 08:11] VITALS: BP 130/78
--- NOTE | 2019-05-29 08:18 | NUR ---
Pain Clinic Assessment: 1. History of Osteoarthritis: Not Applicable History of Rheumatoid Arthritis: Not Applicable 2. Height: 5 ft. 5 in. 165.1 cm. Weight: 190.4 lb. oz. 86.365 kg. Patient's BMI: 31.7 3. Vital Signs: BP: 130/78 Pulse: 86 Resp: 18 Temp: 02 Sat: 96 ECG Mon: 4. Pain Intensity: 5 5. Fall Risk: Dizziness: N Needs help standing or walking: N Fallen in the last 3 months: N Fall risk comments: 6. Patient on Blood Thinner: None 7. History of Hypertension: Y 8. Opioid Therapy greater than 6 weeks: N Opiate Contract Signed: 9. Risk Assessment Tool Provided: LOW 10. Functional Assessment Tool: 57/ 11. Recreational Drug Use: Never Drug Type: Tobacco Use: Never Smoker Tobacco Type: Amount or Packs/day: How Many Years: Alcohol Use: Yes Frequency: Quant:
--- NOTE | 2019-06-05 08:01 | HPC ---
[facility] [place] [address] PAIN MANAGEMENT CONSULTATION Name: CAN PONCEANYI Narvaez Room #: REG LYNSEY ManzanaresMame.#: [id number] Admission: 05/29/19 Attend Phys: Len Barreto DO Discharge: Date of : 42 Report #: [id number] THIS REPORT FOR: //name// CC: MERARI Barreto DATE OF SERVICE: 05/29/2019 CHIEF COMPLAINT: Right piriformis pain. HISTORY OF PRESENT ILLNESS: As you know, the patient is a 78-year-old female who returns today in followup visit to undergo right intramuscular piriformis injection in hopes of improving pain, so the patient can undergo more aggressive physical therapy. We established today's appointment to proceed, the patient's physical therapy, so that she could undergo an intramuscular injection in hopes of improving piriformis pain, so she can undergo more aggressive treatment to cause stretching of the piriformis muscle without significant pain. She returns to undergo the procedure today. Placing current pain score 5/10. ALLERGIES: AUGMENTIN, SULFA, AMOXICILLIN. CURRENT MEDICATIONS: Benicar, amlodipine, atorvastatin, Estrace and diclofenac gel. SOCIAL HISTORY: The patient denies tobacco, alcohol, IV or illicit drug use. IMAGING: No new imaging available. PQRS: The patient has arthritic changes of the lumbar spine, bilateral hips, no rheumatoid arthritis. She is placing current pain score at 5/10, not a fall risk, has not had a fall in last 3 months. She is not on blood thinners. She is treated for hypertension. She is on chronic opioids, has a low opiate addiction potential. Pain impact score remains at 57/70, severe interference of daily activities secondary to pain. PHYSICAL EXAMINATION: VITAL SIGNS: Blood pressure 130/78, pulse 86, respiratory rate 18 and unlabored. The patient is 96% on room air. Height 5 feet 5 inches tall, weight 190.4 pounds, BMI calculated 31.7. GENERAL: Well-developed, well-nourished, well-hydrated 78-year-old female appearing stated age, placing current pain score at 5/10. HEENT: Normocephalic, atraumatic. Pupils equal, round, reactive to light. Speech is fluent. EXTREMITIES: Show no clubbing, no cyanosis, no edema. MUSCULOSKELETAL: The patient remains tender to palpation over the right buttock [address] [address] PAIN MANAGEMENT CONSULTATION Name: TONI PONCE Room #: REG LYNSEY Braxton#: [id number] Admission: 05/29/19 Attend Phys: Len Barreto DO Discharge: Date of : 42 Report #: [id number] area. Deep palpation in area causes intensification of pain. Internal and external rotation of the right hip and lower extremity causes exacerbation of symptoms with pain radiating from the SI joint towards the greater trochanter typical for piriformis muscle spasming and piriformis syndrome. ASSESSMENT: 1. Right piriformis syndrome. 2. Chronic lumbar radiculopathy. 3. Right sacroiliac joint pain. PLAN: 1. The patient returns today in followup visit to undergo a right piriformis injection under fluoroscopic guidance. This is to proceed the patient's physical therapy to allow the patient to participate more actively in the physical therapy program. The patient has been advised risks and benefits of this procedure. These risks include but are not necessarily limited to bleeding, bruising, infection, worsening of pain, no relief of pain, also risk of temporary or permanent muscle weakness, temporary or permanent nerve damage, possible paralysis and . The patient states understood and wished to proceed. 2. No medication changes made at today's visit. The patient will continue current medical therapy as previously prescribed. 3. We will see the patient back in followup visit on an as needed basis. We are hopeful the patient will do very well with the physical therapy starting today and continue throughout the next 6 weeks. DESCRIPTION OF PROCEDURE: Right piriformis intramuscular injection under fluoroscopic guidance. After obtaining written consent, the patient was taken back to fluoroscopy suite, placed in prone position with pillow under abdomen to decrease lumbar lordosis. Skin overlying the gluteal and sacral area on the right was prepped and draped in aseptic fashion. AP imaging was obtained to confirm the position of the injection 1 cm caudad and 1 cm lateral from the inferior aspect of the right sacroiliac joint. This is the classic injection position of piriformis muscle intermuscular injection. A 27-gauge 1-1/4 inch needle was then used to anesthetize skin and subcutaneous tissue overlying this area of injection. A 22-gauge 3-1/2 inch spinal needle was advanced under fluoroscopic guidance entering the piriformis muscle approximately 1 cm distal and 1 cm lateral to the inferior aspect of the right sacroiliac joint and aspiration was noted to be negative for heme at that level. After negative aspiration for heme, 1 mL of Omnipaque injected showing intramuscular spread in classic piriformis distribution. After negative aspiration for heme, 4 mL of a solution containing 1 mL 40 mg per mL, 40 mg total triamcinolone along with 3 mL of bupivacaine 0.5% was injected slowly. Needle was then retracted jail, flushed with [address] [address] PAIN MANAGEMENT CONSULTATION Name: TONI PONCE Room #: REG LYNSEY Braxton#: [id number] Admission: 05/29/19 Attend Phys: Len Barreto DO Discharge: Date of : 42 Report #: [id number] bupivacaine and removed. Sterile bandage placed over injection site. There were no new motor deficits present in the lower extremities following procedure. The patient tolerated procedure well, carefully escorted to recovery room in stable condition. VAS before procedure was rated at 5/10, VAS 10 minutes after procedure 0/10. After meeting our discharge criteria, the patient was discharged to her physical therapy session. <ELECTRONICALLY SIGNED> By: Len Barreto DO 06/05/19 0801 [id number] [id number] Len Barreto DO /nt
== END | disposition home or self-care (01) ==
LOC: PAIN 06:42
DX: M79.18 Myalgia, other site (principal); G57.01 Lesion of sciatic nerve, right lower limb; M53.3 Sacrococcygeal disorders, not elsewhere classified; G89.29 Other chronic pain; M16.0 Bilateral primary osteoarthritis of hip; I10 Essential (primary) hypertension; Z79.891 Long term (current) use of opiate analgesic; Z88.8 Allergy status to other drugs, medicaments and biological substances; Z88.2 Allergy status to sulfonamides; Z79.899 Other long term (current) drug therapy

== ENCOUNTER → 2019-09-25 | Outpatient (CLI) | payer OTHER ==
[~2019-09-25] VITALS: Ht 162.6 cm; Wt 87.0 kg
[~2019-09-25] MED LIST changes: +MELATONIN5 MG SUBLING
[2019-09-25 09:22] VITALS: BP 136/77
--- NOTE | 2019-09-25 09:30 | NUR ---
Pain Clinic Assessment: 1. History of Osteoarthritis: Not Applicable History of Rheumatoid Arthritis: Not Applicable 2. Height: 5 ft. 4 in. 162.6 cm. Weight: 191.8 lb. oz. 87.000 kg. Patient's BMI: 32.9 3. Vital Signs: BP: 136/77 Pulse: 97 Resp: 18 Temp: 02 Sat: 96 ECG Mon: 4. Pain Intensity: 7 5. Fall Risk: Dizziness: N Needs help standing or walking: N Fallen in the last 3 months: N Fall risk comments: 6. Patient on Blood Thinner: None 7. History of Hypertension: Y 8. Opioid Therapy greater than 6 weeks: N Opiate Contract Signed: 9. Risk Assessment Tool Provided: LOW 10. Functional Assessment Tool: 57/ 11. Recreational Drug Use: Never Drug Type: Tobacco Use: Never Smoker Tobacco Type: Amount or Packs/day: How Many Years: Alcohol Use: Yes Frequency: Quant:
--- NOTE | 2019-09-26 13:52 | HPC ---
[facility] [place] [address] PAIN MANAGEMENT CONSULTATION Name: TONI PONCE Room #: REG LYNSEY Saldaña.#: [id number] Admission: 09/25/19 Attend Phys: Len Barreto DO Discharge: Date of : 42 Report #: [id number] THIS REPORT FOR: cc: MERARI DE LUNA MD, HERBERT A. MD Johnson, James E. DO ~ THIS REPORT FOR: //name// CC: MERARI Ellison DATE OF SERVICE: 09/25/2019 REFERRING PHYSICIAN: Dr. Angel Ellison. CHIEF COMPLAINT: Right low back and buttock pain. HISTORY OF PRESENT ILLNESS: As you know, the patient is a 78-year-old female who returns today in followup visit, describing acute onset of low back pain and right buttock pain that started after a physical therapy session where she was using rubber bands to increase resistance to movement of the lower extremities. She states the pain began directly during that physical therapy session and has progressed. She has returned today in followup visit indicating a pain level of 7/10. She states that she underwent MRI of the lumbar spine yesterday per the request of Dr. Ellison though this is not available to us. She has returned to discuss treatment options and to review this MRI, which is currently not available. She denies any other injury or trauma that may have led to symptom reoccurrence. She continues to follow up with Dr. Ellison from a neurosurgical standpoint. ALLERGIES: AUGMENTIN, SULFA, AMOXICILLIN. CURRENT MEDICATIONS: Melatonin 5 mg p.o. at bedtime, methocarbamol 500 mg t.i.d. p.r.n. muscle spasms, gabapentin 900 mg t.i.d., celecoxib 200 mg twice a day, baclofen 10 mg 3 times a day p.r.n., trazodone 100 mg p.o. at bedtime, Benicar/hydrochlorothiazide 20/12.5 mg once a day, guaifenesin 1200 mg twice a day, cetirizine 10 mg once a day, fluticasone 1 spray each nostril per day, Voltaren gel applied topically up to 4 times a day, estradiol 1 mg once a day and atorvastatin 20 mg once a day. SOCIAL HISTORY: The patient denies tobacco, alcohol, IV or illicit drug use. She is retired, unaccompanied today. IMAGING: MRI lumbar spine obtained on 09/24/2019 unavailable [place] [address] PAIN MANAGEMENT CONSULTATION Name: TONI PONCE Room #: REG [facility].#: [id number] Admission: 09/25/19 Attend Phys: Len Barreto DO Discharge: Date of : 42 Report #: [id number] PQRS: The patient has known arthritic changes of the lumbar spine, bilateral hips, but has no rheumatoid arthritis. She is placing pain today at 7/10. She is not a fall risk, has not had a fall in last 3 months. She is not on blood thinners, but is treated for hypertension. She is not on chronic opioids and does have a low opioid addiction potential. Pain impact score 57/70 indicating severe interference of daily activities secondary to pain. PHYSICAL EXAMINATION: VITAL SIGNS: Blood pressure 136/77, pulse 97, respiratory rate 18 and unlabored. The patient is 96% on room air. Height 5 feet 4 inches tall, weight 191.8 pounds, BMI calculated 32.9. GENERAL: Well-developed, well-nourished, well-hydrated exogenously obese 78-year-old female appearing stated age, pain is rated today at 7/10. HEENT: Normocephalic, atraumatic. Pupils equal, round, reactive to light. NEUROLOGIC: Speech fluent. The patient deemed a good historian. EXTREMITIES: Show no clubbing, no cyanosis, and no edema. MUSCULOSKELETAL: The patient does have tenderness to palpation over the paraspinal musculature of the right lower lumbar spine. Deep palpation over the right sacroiliac joint causes intensification of pain. Seated straight leg raising negative. Supine straight leg raising causes low back and SI joint pain, but no typical radiating pain pattern. Gait is antalgic favoring right lower extremity over left. There is palpatory tenderness over the greater trochanteric bursa on the right, negative left. Marguerite's test is negative for intrinsic hip pathology, though there is pain generated over the SI joint. ASSESSMENT: 1. Right sacroiliac joint dysfunction. 2. Right sacroiliac joint pain. 3. Chronic lumbar radiculopathy. 4. Lumbosacral spondylosis without current radiculopathy. PLAN: 1. The patient has returned today in followup visit indicating that she has had pain since a physical therapy session know almost 2 months ago. The patient states she was utilizing rubber bands to increase resistance to the legs while doing exercise program and this exacerbated her right buttock and posterolateral thigh pain. She apparently underwent MRI of the lumbar spine yesterday per the request of Dr. Ellison though this is not available to us. We would like to review this imaging study before any interventional treatment is offered so that we can determine if a source of pathology may be present in the lumbar spine that we have yet to find from physical exam. The patient is amenable. 2. We have had the patient's sign release of information forms today. We will fax it over to the [facility] to gain access to her MRI, so that we can review those findings. Apparently, she has also had x-ray imaging of the lumbar region, which we will also obtain. We will have this information [address] [address] PAIN MANAGEMENT CONSULTATION Name: TONI PONCE Room #: REG LYNSEY Irais#: [id number] Admission: 09/25/19 Attend Phys: Len Barreto DO Discharge: Date of : 42 Report #: [id number] hopefully by later today. We will be able to review those findings and then discuss more definitive treatment options when the patient follows up. 3. We have taken the liberty of placing the patient on an appointment tomorrow to potentially undergo injection treatment. We will review the MRI if there are changes there. We will discuss this with the patient if no changes. We will plan to have the patient undergo a sacroiliac joint injection to address current pain generated by physical examination. 4. No medication changes made at today's visit. The patient will continue current medical therapy. 5. We will see the patient back in followup visit tomorrow assuming we can gain the MRI results and have a chance to review those before her visit. <ELECTRONICALLY SIGNED> By: Len Barreto DO 09/26/19 1352 1040 01 Len Barreto DO /crow
== END ==
LOC: PAIN 06:36
DX: M47.27 Other spondylosis with radiculopathy, lumbosacral region (principal); G57.01 Lesion of sciatic nerve, right lower limb; Z88.1 Allergy status to other antibiotic agents; Z88.2 Allergy status to sulfonamides; Z79.891 Long term (current) use of opiate analgesic; Z79.899 Other long term (current) drug therapy

== ENCOUNTER → 2019-09-26 | Outpatient (CLI) | payer OTHER ==
[~2019-09-26] VITALS: Ht 162.6 cm; Wt 87.5 kg
[2019-09-26 14:01] VITALS: BP 138/70
--- NOTE | 2019-09-26 14:10 | NUR ---
Pain Clinic Assessment: 1. History of Osteoarthritis: Not Applicable History of Rheumatoid Arthritis: Not Applicable 2. Height: 5 ft. 4 in. 162.6 cm. Weight: 193.0 lb. oz. 87.544 kg. Patient's BMI: 33.1 3. Vital Signs: BP: 138/70 Pulse: 78 Resp: 14 Temp: 02 Sat: 96 ECG Mon: 4. Pain Intensity: 7 5. Fall Risk: Dizziness: N Needs help standing or walking: N Fallen in the last 3 months: N Fall risk comments: 6. Patient on Blood Thinner: None 7. History of Hypertension: Y 8. Opioid Therapy greater than 6 weeks: N Opiate Contract Signed: 9. Risk Assessment Tool Provided: LOW 10. Functional Assessment Tool: / 11. Recreational Drug Use: Never Drug Type: Tobacco Use: Never Smoker Tobacco Type: Amount or Packs/day: How Many Years: Alcohol Use: Yes Frequency: Quant:
--- NOTE | 2019-09-28 07:46 | HPC ---
[facility] [place] [address] PAIN MANAGEMENT CONSULTATION Name: TONI PONCE Room #: REG LYNSEY Saldaña.#: [id number] Admission: 09/26/19 Attend Phys: Len Barreto DO Discharge: Date of : 42 Report #: [id number] THIS REPORT FOR: cc: MERARI DE LUNA MD, HERBERT A. MD Johnson, James E. DO ~ THIS REPORT FOR: //name// CC: MERARI Barreto DATE OF SERVICE: 09/26/2019 CHIEF COMPLAINT: Right low back pain, right posterolateral thigh pain. HISTORY OF PRESENT ILLNESS: As you know, patient is a 78-year-old female who had returned to followup visit to 09/25/2019 with ongoing right upper back pain and right buttock and posterolateral thigh pain that she reports began after physical therapy session where she was using rubber bands for resistance therapy and treatment. She states from that time, her pain has been intense. She contacted her neurosurgeon who requested MRI of lumbar spine to be obtained. This was done at [facility] and was not available to us yesterday. She returns today in followup visit to review those findings and to discuss interventional treatments. She is indicating pain today at a level of 7/10. ALLERGIES: AUGMENTIN, SULFA AND AMOXICILLIN. CURRENT MEDICATIONS: See extensive list in chart. SOCIAL HISTORY: The patient denies tobacco, IV or illicit drug use. Denies any chronic alcohol use. She is retired, unaccompanied today. IMAGING: MRI of the lumbar spine obtained 09/10/2019 shows post-laminectomy changes and fusion extending from L2 through S1. There are changes of degenerative disk disease seen throughout the lumbar spine. These findings do not result in any significant central canal or neural foraminal stenosis. Imaging is essentially unchanged from the MRI of 04/12/2019. PQRS: The patient has known arthritic changes of the lumbar spine, bilateral hips, but no rheumatoid arthritis. She is placing pain intensity today at 7/10. She is not a fall risk, has not had a fall in last 3 months. She is not on blood thinners. She is treated for hypertension. She is not on chronic opioids and has a low opiate addiction potential. Pain impact score 57/70, severe interference of daily activities secondary to pain. [address] [address] PAIN MANAGEMENT CONSULTATION Name: KRISCAN MORENOANYI Narvaez Room #: REG LYSSAJosé Luis Braxton#: [id number] Admission: 09/26/19 Attend Phys: Len Barreto DO Discharge: Date of : 42 Report #: [id number] PHYSICAL EXAMINATION: VITAL SIGNS: Blood pressure 138/70, pulse 74, respiratory rate 14 and unlabored. The patient is 96% on room air. Height 5 feet 4 inches tall, weight 193 pounds, BMI calculated 33.1. GENERAL: Well-developed, well-nourished, well-hydrated exogenously obese 78-year-old female appearing stated age, pain is rated at around 7/10. HEENT: Normocephalic, atraumatic. Pupils equal, round, reactive to light. NEUROLOGIC: Speech fluent. The patient deemed a fair historian. EXTREMITIES: Show no clubbing, no cyanosis, and no edema. MUSCULOSKELETAL: There is palpatory tenderness noted over the paraspinal musculature of lower lumbar spine. No spinous process tenderness. Deep palpation over the right sacroiliac joint causes intensification of the patient's current pain. Seated straight leg raising negative. Supine straight leg raising is negative for any radicular symptoms. Gait is antalgic favoring right lower extremity over left. ASSESSMENT: 1. Right sacroiliac joint dysfunction. 2. Right sacroiliac joint pain. 3. Chronic lumbar radiculopathy. 4. Lumbosacral spondylosis without current radiculopathy. PLAN: 1. The patient returns today in followup visit where we have acute reviewed her MRI in its entirety. I am pleased to advise the patient that there has been no significant changes in the MRI from the evaluation of 03/2019. There does appear to be degenerative changes consistent with the need for fusion from L2 through S1, but there is no lateralizing feature, no significant central canal stenosis or neural foraminal stenosis. I am pleased to advise the patient there has been no significant changes. 2. It does appear the patient is suffering from continued right SI joint pain. This may have been exacerbated by the patient's physical therapy utilizing resistance band for strength training. We recommend an intraarticular SI joint injection on the right. If this does provide good and prolonged benefit, we would recommend utilizing those on an as needed basis. If no significant pain improvement is noted, she may be a candidate for a SI joint fusion. We will defer to the referring neurosurgeon to discuss that with the patient further. We have discussed the possibility of undergoing an SI joint injection today and the patient is amenable. The patient was advised the risks and benefits of a right SI joint injection. These risks include but are not necessarily limited to bleeding, bruising, infection, worsening pain, no relief of pain, also risk of temporary or permanent muscle weakness, temporary or permanent nerve damage, possible joint destruction and . The patient states understood and wished to proceed. 3. No medication changes made at today's visit. The patient will continue [address] [address] PAIN MANAGEMENT CONSULTATION Name: TONI PONCE Room #: REG [facility] Piper.#: [id number] Admission: 09/26/19 Attend Phys: Len Barreto DO Discharge: Date of : 42 Report #: [id number] current medical therapy as prior prescribed. 4. We will see the patient back in followup visit on an as needed basis for possible next in the series of right SI joint injections. PROCEDURE NOTE DESCRIPTION OF PROCEDURE: Right sacroiliac joint injection under fluoroscopic guidance. After obtaining written consent, patient was taken back to fluoroscopy suite, placed in prone position with pillow under abdomen and pelvis to decrease the lumbar lordosis. Skin overlying the gluteal sacral area directly overlying the right sacroiliac joint was prepped and draped in aseptic fashion. A medial to lateral oblique projection allowed separation of the anterior and posterior joint space to be visualized. Skin and subcutaneous tissue overlying target site of injection was anesthetized with 3 mL of 1% lidocaine. A 22-gauge, 3-1/2 inch spinal needle with bent tip was directed into the inferior aspect of the sacroiliac joint using a posterior approach. A "giving away" at the needle hub was noted once the dorsal sacroiliac and interosseous ligaments were engaged. After negative aspiration for heme, a total of 0.4 mL of Omnipaque injected. Outlining the inferior recess of the joint. Provocation responses consistent of intense buttock pain were negative. After negative aspiration for heme, 3 mL of a solution containing 1 mL, 40 mg per mL, 40 mg total triamcinolone and 2 mL of bupivacaine 0.5% was injected slowly. Needle then retracted approximately half way, flushed with 1 mL of 1% lidocaine and then removed. Sterile bandage placed over injection site. There were no new motor deficits present in lower extremities following procedure. The patient tolerated procedure well, carefully escorted to recovery room in stable condition. No apparent complications. VAS before procedure 7/10, VAS prior to discharge 0/10. After meeting our discharge criteria, discharged home. <ELECTRONICALLY SIGNED> By: Len Barreto DO 09/28/19 0746 [id number] Len Barreto DO /nt
== END | disposition home or self-care (01) ==
LOC: PAIN 06:54
DX: M53.3 Sacrococcygeal disorders, not elsewhere classified (principal); M47.27 Other spondylosis with radiculopathy, lumbosacral region; G89.29 Other chronic pain; I10 Essential (primary) hypertension; Z98.890 Other specified postprocedural states; Z79.899 Other long term (current) drug therapy; Z79.891 Long term (current) use of opiate analgesic; Z88.2 Allergy status to sulfonamides; Z88.8 Allergy status to other drugs, medicaments and biological substances

== ENCOUNTER → 2020-11-07 | Outpatient (CLI) | payer OTHER, MEDICARE | LOC: LAB 08:55 | PROVIDERS: ATTEND Anesthesiology | DX: Z01.812 Encounter for preprocedural laboratory examination (principal); Z20.822 Contact with and (suspected) exposure to COVID-19 ==

== ENCOUNTER → 2021-09-08 | Outpatient (CLI) | payer OTHER, MEDICARE ==
[~2021-09-08] VITALS: Ht 162.6 cm; Wt 79.4 kg
[2021-09-08 10:06] VITALS: BP 136/86
--- NOTE | 2021-09-08 10:26 | NUR ---
Pain Clinic Assessment: 1. History of Osteoarthritis: Not Applicable History of Rheumatoid Arthritis: Not Applicable 2. Height: 5 ft. 4 in. 162.6 cm. Weight: 175.0 lb. oz. 79.380 kg. Patient's BMI: 30.0 3. Vital Signs: BP: 136/86 Pulse: 88 Resp: 16 Temp: 02 Sat: 98 ECG Mon: 4. Pain Intensity: 7 5. Fall Risk: Dizziness: N Needs help standing or walking: N Fallen in the last 3 months: N Fall risk comments: 6. Patient on Blood Thinner: None 7. History of Hypertension: Y 8. Opioid Therapy greater than 6 weeks: N Opiate Contract Signed: 9. Risk Assessment Tool Provided: LOW 10. Functional Assessment Tool: 57/ 11. Recreational Drug Use: Never Drug Type: Tobacco Use: Never Smoker Tobacco Type: Amount or Packs/day: How Many Years: Alcohol Use: Yes Frequency: Monthly Quant: 2 drinks
--- NOTE | 2021-09-09 09:57 | HPC ---
[facility] [place] [address] PAIN MANAGEMENT CONSULTATION Name: TONI PONCE Room #: REG LYNSEY Saldaña.#: [id number] Admission: 09/08/21 Attend Phys: Len Barreto DO Discharge: Date of : 42 Report #: [id number] THIS REPORT FOR: cc: KIKE CAPPS MD, HERBERT A. MD Johnson, James E. DO ~ cc: Kike Capps MD DATE OF SERVICE: 09/08/2021 REFERRING PHYSICIAN: Kike Capps MD CHIEF COMPLAINT: Right upper buttock and posterolateral thigh pain. HISTORY OF PRESENT ILLNESS: As you know, the patient is a 80-year-old female returning in followup visit with recurrence of her sacroiliac joint pain. She is placing pain today at a level of up to 7/10. She is able to localize pain directly over the right sacroiliac joint. As you are aware, the patient has undergone extensive lumbar fusion and continues to experience intermittent SI joint pain secondary to this fusion, which change the patient's ability of gait and stance. She was very pleased with response to the previous SI joint injection, returning today to undergo the next in the series. Last time the patient underwent an injection such as this was 09/26/2019. She states prior to the recurrence of her symptoms that began about a couple of weeks ago, she was doing great. She describes pain as sharp, burning, stabbing, exacerbated with walking, improves with medications and previous SI joint injection. ALLERGIES: AUGMENTIN, SULFA, AMOXICILLIN. CURRENT MEDICATIONS: Melatonin, methocarbamol, gabapentin, celecoxib, trazodone, Losartan/hydrochlorothiazide, guaifenesin, sertraline, fluticasone, diclofenac sodium, estradiol, atorvastatin. SOCIAL HISTORY: The patient denies tobacco, alcohol or IV or illicit drug use. She is retired, unaccompanied today. IMAGING: No new imaging available. PQRS: The patient has known arthritic changes of lumbar spine, bilateral hips. No rheumatoid arthritis. She is placing pain intensity today 02/28. She is not a fall risk, has not had a fall in last 3 months. She is not on blood thinners, but is treated for hypertension. She is on no opioid medications, has a low opioid addiction potential based on assessment tool. Pain impact is 57/70, severe interference of daily activities secondary to pain. PHYSICAL EXAMINATION: VITAL SIGNS: Blood pressure 136/86, pulse 88, respiratory rate [address] [address] PAIN MANAGEMENT CONSULTATION Name: TONI PONCE Room #: REG [facility].#: [id number] Admission: 09/08/21 Attend Phys: Len Barreto DO Discharge: Date of : 42 Report #: [id number] unlabored. The patient 98% on room air. Height 5 feet 4 inches tall, weight 175 pounds, BMI calculated 30.0. GENERAL: Well-developed, well-nourished, well-hydrated 80-year-old female appearing stated age, pain is rated a 7/10. HEENT: Normocephalic, atraumatic. She is wearing mask in compliance with COVID-19 regulations. Extraocular muscles are intact. Speech is fluent. EXTREMITIES: Show no clubbing, no cyanosis. No appreciable edema. MUSCULOSKELETAL: There is palpatory tenderness over the right sacroiliac joint, negative on the left. Seated straight leg raising negative. Supine straight leg raising is negative. Gait is antalgic favoring right lower extremity due to pain. Thigh thrust maneuver is positive. Jhonatan's test is positive on the right. ASSESSMENT: 1. Right sacroiliac joint dysfunction. 2. Right sacroiliac joint osteoarthritis. 3. Right sacroiliac joint pain. 4. Chronic low back pain, status post multiple level fusion. PLAN: 1. The patient returns today in followup visit with what appears to be recurrence of right sacroiliac joint pain. She has palpatory tenderness over the right sacroiliac joint, consistent with her symptoms. She also has fusion of the lower lumbar spine, which is an unfortunate set up for SI joint dysfunction over time. She had done very well with previous SI joint injection reporting improvement in symptoms of approximately 90% until just recently where she had a slow and progressive return of symptoms, no inciting injury or trauma. She returns today to undergo SI joint injection under fluoroscopic guidance. 2. No medication changes made at today's visit. The patient will continue current medical therapy as prior prescribed. 3. We will plan to see the patient back in followup visit on an as needed basis for the next in the series of SI joint injections. We are hopeful the patient will see good benefit with this procedure. I did discuss with the patient the possibility of having her discussed her case further with Neurosurgery and attempt a fusion of the SI joint. She is hopeful that she will see improvement with conservative treatment. We will discuss this at followup visit. PROCEDURE NOTE. DESCRIPTION OF PROCEDURE: Right sacroiliac joint injection under fluoroscopic guidance. After obtaining written consent, the patient was taken back to fluoroscopy suite, placed in prone position with pillow under abdomen and pelvis to decrease lumbar lordosis. Skin overlying the gluteal sacral area directly overlying the [place] [address] PAIN MANAGEMENT CONSULTATION Name: CAN PONCEANYI Narvaez Room #: REG LYSSAJosé Luis Saldaña.#: [id number] Admission: 09/08/21 Attend Phys: Len Barreto DO Discharge: Date of : 42 Report #: [id number] right sacroiliac joint was prepped and draped in aseptic fashion. A medial to lateral oblique projection allowed separation of the anterior and posterior joint spaces to be visualized. Skin and subcutaneous tissue overlying target site injection was anesthetized with 3 mL 1% lidocaine. A 22-gauge 3-1/2 inch spinal needle with bent tip was directed to the inferior aspect of the sacroiliac joint using a posterior approach. A "giving away" at the needle hub was noted once the dorsal sacroiliac and interosseous ligaments were engaged. After negative aspiration for heme, 0.3 mL of Omnipaque injected. This outlining the inferior recess of the joint. Provocation responses consistent of intense buttock pain were negative. After negative aspiration for heme, 3 mL of a solution containing 1 mL 40 mg per mL, 40 mg total triamcinolone and 2 mL bupivacaine 0.5% injected slowly. Needle retracted longterm flushed with 1 mL of 1% lidocaine and removed. Sterile bandage placed over injection site. No new motor deficits present in lower extremity following procedure. The patient tolerated the procedure well, carefully escorted to recovery room in stable condition. No apparent complications. After meeting discharge criteria, the patient discharged home. <ELECTRONICALLY SIGNED> By: Len Barreto DO 09/09/21 0957 [id number] [id number] Len Barreto DO /nt
== END | disposition home or self-care (01) ==
LOC: PAIN 07-28 12:34
PROVIDERS: ATTEND Anesthesiology Pain Medicine
DX: M53.3 Sacrococcygeal disorders, not elsewhere classified (principal); M46.98 Unspecified inflammatory spondylopathy, sacral and sacrococcygeal region; M54.59 Other low back pain; G89.29 Other chronic pain; I10 Essential (primary) hypertension; M19.90 Unspecified osteoarthritis, unspecified site; Z98.890 Other specified postprocedural states; Z79.891 Long term (current) use of opiate analgesic; Z79.899 Other long term (current) drug therapy; Z88.0 Allergy status to penicillin; Z88.2 Allergy status to sulfonamides

== ENCOUNTER → 2021-09-15 | Outpatient (CLI) | payer OTHER, MEDICARE ==
[~2021-09-15] VITALS: Ht 162.6 cm; Wt 77.7 kg
[~2021-09-15] MED LIST changes: +RELAFEN500 M1 PO
[2021-09-15 12:59] VITALS: BP 163/77
--- NOTE | 2021-09-15 13:15 | NUR ---
Pain Clinic Assessment: 1. History of Osteoarthritis: Not Applicable History of Rheumatoid Arthritis: Not Applicable 2. Height: 5 ft. 4 in. 162.6 cm. Weight: 171.2 lb. oz. 77.656 kg. Patient's BMI: 29.4 3. Vital Signs: BP: 163/77 Pulse: 87 Resp: 20 Temp: 02 Sat: 98 ECG Mon: 4. Pain Intensity: 8 5. Fall Risk: Dizziness: N Needs help standing or walking: N Fallen in the last 3 months: N Fall risk comments: 6. Patient on Blood Thinner: None 7. History of Hypertension: Y 8. Opioid Therapy greater than 6 weeks: N Opiate Contract Signed: 9. Risk Assessment Tool Provided: LOW 10. Functional Assessment Tool: 57/ 11. Recreational Drug Use: Never Drug Type: Tobacco Use: Never Smoker Tobacco Type: Amount or Packs/day: How Many Years: Alcohol Use: Yes Frequency: Special Occasions Quant: 1
--- NOTE | 2021-09-16 08:18 | HPC ---
[facility] [address] [place] [address] PAIN MANAGEMENT CONSULTATION Name: TONI PONCE Room #: REG LYNSEY Saldaña.#: [id number] Admission: 09/15/21 Attend Phys: Len Barreto DO Discharge: Date of : 42 Report #: [id number] THIS REPORT FOR: cc: KIKE CAPPS MD, HERBERT A. MD Johnson, James E. DO ~ cc: Kike Capps MD DATE OF SERVICE: 09/15/2021 REFERRING PHYSICIAN: Dr. Kike Capps CHIEF COMPLAINT: Right upper buttock and posterolateral thigh pain. HISTORY OF PRESENT ILLNESS: As you know, the patient is a 80-year-old female who returns today in followup visit having undergone right sacroiliac joint injection under fluoroscopic guidance at her last visit. Unfortunately, her symptoms have only improved about 50%. She continues to experience right buttock muscle cramping consistent with SI joint symptomatology. Prior to this injection, the patient was dealing with pain. She reported a level of up to 7/10. She now returns stating that the pain is more intermittent, but is at the same level when it is present. She is requesting adjustments in medication management. At the last visit, we did discuss with the patient that she will likely ultimately have to have fusion of the SI joint if her symptoms do not improve. As you are aware, the patient has had extensive lumbar fusion and this typically requires SI joint fusions over time as the movement of the lumbar spine has to be translated to other areas as she continues to bend and move as much as normally as she can and that is transferred on to the SI joints. She returns to discuss options for treatment to address this continued symptom. ALLERGIES: AUGMENTIN, SULFA, AMOXICILLIN. CURRENT MEDICATIONS: See chart. SOCIAL HISTORY: The patient denies tobacco, alcohol or IV or illicit drug use. She is retired, unaccompanied today. IMAGING: No new imaging available. PQRS: The patient has known arthritic changes of lumbar spine, bilateral hips, SI joint on the right, negative left. No rheumatoid arthritis. She is placing pain intensity up to 8/10. She is not a fall risk, has not had a fall in last 3 months. She is not on blood thinners, but is treated for hypertension. She is on no opioids, has a low opioid addiction potential based on assessment tool. Pain impact is 57/70, severe interference of daily activities secondary to pain. PHYSICAL EXAMINATION: [facility] [address] [place] [address] PAIN MANAGEMENT CONSULTATION Name: TONI PONCE Room #: REG [facility]#: [id number] Admission: 09/15/21 Attend Phys: Len Barreto DO Discharge: Date of : 42 Report #: [id number] VITAL SIGNS: Blood pressure 163/77, pulse 87, respiratory rate 20, unlabored. The patient is 98% on room air. Height 5 feet 4 inches tall, weight 171.2 pounds, BMI calculated 29.4. GENERAL: Well-developed, well-nourished, well-hydrated 80-year-old female appearing stated age, pain is rated today up to 8/10. HEENT: Normocephalic, atraumatic. Pupils are round. She is wearing a mask in compliance with COVID-19 regulations. EXTREMITIES: Show no clubbing, no cyanosis, no edema. MUSCULOSKELETAL: The patient once again has tenderness to palpation over the right sacroiliac joint. Thigh thrust maneuver is positive on the right, negative left. Jhonatan's test is positive on the right, negative left. There are well-healed surgical scars of the lumbar spine consistent with the patient's fusion. ASSESSMENT: 1. Right sacroiliac joint dysfunction. 2. Right sacroiliac joint arthritis. 3. Right sacroiliac joint pain. 4. Chronic intractable pain. PLAN: 1. The patient returns today in followup visit having noted improvement in symptoms with the SI joint injection, but unfortunately her symptoms when present are more related to muscle spasming over the buttock area. She is able to localize symptoms directly over the right sacroiliac joint. We had discussed with the patient at our last visit that if the SI joint injections failed to provide improvement, fusion may be necessary. She is considering this option. She returns today to discuss adjustments in medication management. The patient suffered no new injury, no new trauma that has led to symptom recurrence. 2. The patient will discontinue all nonsteroidal anti-inflammatories, in place will use nabumetone 500 mg dose 1 tab p.o. t.i.d. I have given the patient #90 tablets. I do not recommend long-term treatment with this therapy, but this can help reduce the inflammatory process and improve the overall pain. She is agreeable with this plan. #90 tablets were sent to local pharmacy with refills as necessary. The patient will watch for dyspepsia, worsening of blood pressure, lower extremity edema with the medication. If she notes these side effects, discontinue immediately. 3. The patient was provided a prescription of baclofen 10 mg dose. She is to take one-half tab to 1 tab p.o. t.i.d. p.r.n. muscle spasms. She was given #90 tablets and 2 refills, 3 months' worth of medication. She will watch for side effects of sleepiness, disorientation, confusion, mental slowing with the medication. If she notes too many side effects, we will start the patient on methocarbamol. 4. The patient and I discussed at length possible fusion of the SI joint. There is a percutaneous version of fusion, this was performed by Dr. Trevor Chang at [facility]. The other is a full instrumented fusion, which could [facility] [address] [place] [address] PAIN MANAGEMENT CONSULTATION Name: TONI PONCE Room #: REG [facility].#: [id number] Admission: 09/15/21 Attend Phys: Len Barreto DO Discharge: Date of : 42 Report #: [id number] be provided by the patient's neurosurgery team. She will consider her options if she wishes to move forward with this type of treatment. She will contact our clinic. 5. To see the patient back in followup visit on an as needed basis. We are hopeful that adjustments in the medication will be sufficient at controlling her pain. <ELECTRONICALLY SIGNED> By: Len Barreto DO 09/16/21 0818 [id number] [id number] Len Barreto DO /nt
== END ==
LOC: PAIN 12:08
PROVIDERS: ATTEND Anesthesiology Pain Medicine
DX: G89.29 Other chronic pain (principal); M13.88 Other specified arthritis, other site; M53.3 Sacrococcygeal disorders, not elsewhere classified; M79.651 Pain in right thigh; Z88.8 Allergy status to other drugs, medicaments and biological substances